=== PATIENT | male | born 1990 | race Caucasian/White ===

== ENCOUNTER 2023-07-01 12:12 | Inpatient (IN) | payer SELFPAY ==
[2023-07-01 12:21] VITALS: BMI 26.2
[2023-07-01 12:22] VITALS: BP 163/103; PULSE 63; RESP 16; TEMP 36.8; O2SAT 97
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
[2023-07-01 14:00] VITALS: BP 163/103; PULSE 63; RESP 16; TEMP 36.8; O2SAT 97
[2023-07-01] MEDS: nicotine 2 mg Gum BUCCAL (19:40)
[2023-07-01 19:43] VITALS: BP 154/92; PULSE 64; RESP 20; TEMP 36.3; O2SAT 98
[2023-07-02] MEDS: nicotine 2 mg Gum BUCCAL ×4 (05:20→17:48)
[2023-07-02 06:00] VITALS: BP 147/98; PULSE 67; RESP 20; TEMP 37.2; O2SAT 98
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
--- NOTE | 2023-07-02 13:15 | NPU.GN ---
[facility] Topic:outside football General Mood of Group: patient participated in throwing the football to other patients and staff
[2023-07-02 13:25] VITALS: BP 136/88; PULSE 103; RESP 16; TEMP 36.8; O2SAT 96
[2023-07-02 20:02] VITALS: BP 143/88; PULSE 68; RESP 18; TEMP 37.3; O2SAT 96
[2023-07-03] MEDS: nicotine 2 mg Gum BUCCAL ×4 (05:52→15:10)
[2023-07-03 06:00] VITALS: BP 144/94; PULSE 66; RESP 16; TEMP 37; O2SAT 99
[2023-07-03 14:00] VITALS: BP 148/95; PULSE 80; RESP 18; TEMP 36.9; O2SAT 97
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
[2023-07-03 15:38] VITALS: BP 148/95; PULSE 80; RESP 18; TEMP 36.9; O2SAT 97
== END 2023-07-03 17:27 | disposition home or self-care (01) | DRG 882 ==
PROVIDERS: Admitting Provider Psychiatry & Neurology Psychiatry; Visit Provider Psychiatry & Neurology Psychiatry
DX: F43.25 Adjustment disorder with mixed disturbance of emotions and conduct (principal); R45.851 Suicidal ideations; Z81.1 Family history of alcohol abuse and dependence; F17.210 Nicotine dependence, cigarettes, uncomplicated; F43.10 Post-traumatic stress disorder, unspecified
CPT/HCPCS: 97150; 97165; 99238